=== PATIENT | male | born 1990 | race Caucasian/White ===

== ENCOUNTER 2017-10-18 09:19 | Emergency (ER) | payer OTHER ==
--- NOTE | 2017-10-18 10:54 | RAD ---
Indication: Bilateral wrist pain after injury. 4 views of the left wrist and 4 views of the right wrist are reviewed. There is no fracture or dislocation. No other bone or joint abnormality is identified. IMPRESSION: No fracture of either wrist is noted.
[2017-10-18] MEDS ORDERED: Ketorolac INJ* 60 MG/2 ML VIAL IM ONE (11:11)
[2017-10-18 11:55] VITALS: BP 116/61
--- NOTE | 2017-10-19 18:37 | ED ---
Barak Fine Angela, scribed for Coleman Christie MD on 10/18/17 at 1008 . Upper Extremity Pain - HPI Summary HPI Summary: This pt is a 27 y/o male presenting to [facility] c/o bilateral wrist pain since yesterday. 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 He notes that he didn't feel pain until last night. This morning, he states his pain worsened and had burning pain while driving to work. Denies any PMHx. - History of Current Complaint Chief Complaint: EDExtremityUpper Stated Complaint: WRIST INJURY Time Seen by Provider: 10/18/17 09:47 Hx Obtained From: Patient Mechanism Of Injury: Blunt Trauma Onset/Duration: Started Days Ago - 1, Traumatic, Still Present Timing: Lasting Days - 1 Severity Currently: Moderate Pain Location: Wrist - bilateral Character: Burning Aggravating Factor(s): Movement Alleviating Factor(s): Rest Associated Signs & Symptoms: Positive: Negative - Allergies/Home Medications Allergies/Adverse Reactions: Allergies Allergy/AdvReac Type Severity Reaction Status Date / Time No Known Allergies Allergy Verified 07/23/14 14:06 PMH/Surg Hx/FS Hx/Imm Hx Endocrine/Hematology History: Denies: Hx Diabetes Cardiovascular History: Denies: Hx Hypertension History: Reports: Hx Kidney Stones Infectious Disease History: No Infectious Disease History: Denies: Traveled Outside the [place] in Last 30 Days - Family History Known Family History: Negative: Cardiac Disease, Hypertension, Diabetes - Social History Alcohol Use: Rare Substance Use Type: Reports: None Smoking Status (MU): Never Smoked Tobacco Review of Systems Negative: Fever, Chills Eyes: Negative ENT: Negative Cardiovascular: Negative Respiratory: Negative Gastrointestinal: Negative Musculoskeletal: Other - bilateral wrist pain Positive: Headache All Other Systems Reviewed And Are Negative: Yes Physical Exam - Summary Physical Exam Summary: VITAL SIGNS: Reviewed. GENERAL: Patient is a well-developed and nourished male who is lying comfortable in the stretcher. Patient is not in any acute respiratory distress. HEAD AND FACE: No signs of trauma. No ecchymosis, hematomas or skull depressions. No sinus tenderness. EYES: PERRLA, EOMI x 2, No injected conjunctiva, no nystagmus. EARS: Hearing grossly intact. Ear canals and tympanic membranes are within normal limits. MOUTH: Oropharynx within normal limits. NECK: Supple, trachea is midline, no adenopathy, no JVD, no carotid bruit, no c- spine tenderness, neck with full ROM. CHEST: Symmetric, no tenderness at palpation LUNGS: Clear to auscultation bilaterally. No wheezing or crackles. CVS: Regular rate and rhythm, S1 and S2 present, no murmurs or gallops appreciated. ABDOMEN: Soft, non-tender. No signs of distention. No rebound no guarding, and no masses palpated. Bowel sounds are normal. EXTREMITIES: FROM in all major joints, no edema, no cyanosis or clubbing. No deformity noted on bilateral wrists. No ecchymosis. No hematoma. There are good pulses. NEURO: Alert and oriented x 3. No acute neurological deficits. Speech is normal and follows commands. SKIN: Dry and warm Triage Information Reviewed: Yes Vital Signs On Initial Exam: Initial Vitals Temp Pulse Resp BP Pulse Ox 98.4 F 69 18 133/76 97 10/18/17 09:20 10/18/17 09:20 10/18/17 09:20 10/18/17 09:20 10/18/17 09:20 Vital Signs Reviewed: Yes Diagnostics - Vital Signs Vital Signs Temp Pulse Resp BP Pulse Ox 10/18/17 09:20 98.4 F 69 18 133/76 97 - Laboratory Lab Statement: Any lab studies that have been ordered have been reviewed, and results considered in the medical decision making process. - Radiology Bilateral wrist XR Xray Interpretation: No Acute Changes - IMPRESSION: No fracture on either wrist is noted. Dr. Christie has reviewed this radiology report. Radiology Interpretation Completed By: Radiologist Re-Evaluation - Re-Evaluation First Eval Re-Evaluation Time: 11:28 Comment: I reviewed the XR with the pt. Course/Dx - Course Assessment/Plan: This pt is a 27 y/o male presenting to [facility] c/o bilateral wrist pain since yesterday. 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 He notes that he didn't feel pain until last night. This morning, he states his pain worsened and had burning pain while driving to work. Denies any PMHx. Bilateral wrist XR shows no fractures or dislocations. In the ED course the pt was given Toradol for the pain. Pt reports feeling better with minimal pain. Therefore he will be discharged to home with follow up from her PCP. He is instructed to return to the ED for any worsening or new symptoms. Pt is hemodynamically stable, alert and oriented x3. I discussed all the findings and test results with the patient. Patient was instructed to return to the emergency room immediately if any of the symptoms return or worsens. Plan of care was discussed with the patient and understands and agrees. All questions were answered at patient satisfaction. There were no further complaints or concerns. - Diagnoses Differential Diagnosis/HQI/PQRI: Positive: Burn, Bursitis, Contusion, Fracture ( Open), Fracture (Closed), Strain, Sprain Provider Diagnoses: Wrist pain Discharge - Discharge Plan Condition: Stable Disposition: HOME Patient Education Materials: Wrist Injury (ED) Referrals: [facility] PHYSICIAN REFERRAL [Outside] Additional Instructions: Please follow up with your primary care provider. RETURN TO THE ED FOR ANY WORSENING SYMPTOMS. The documentation as recorded by the Barak aponte Angela accurately reflects the service I personally performed and the decisions made by me, Coleman Christie MD.
== END 2017-10-18 11:54 | disposition home or self-care (01) ==
LOC: ED 09:19
DX: M25.532 Pain in left wrist (principal); M25.531 Pain in right wrist; X58.XXXA Exposure to other specified factors, initial encounter; Y92.89 Other specified places as the place of occurrence of the external cause
CPT/HCPCS: 96372; 99282; J1885